=== PATIENT | male | born 1970 | race Caucasian/White ===

== ENCOUNTER 2021-05-24 11:27 | Inpatient (IN) ==
[2021-05-24 12:11] LABS: Hematocrit 45.5 % (37.5-50.1); Hemoglobin 15.6 g/dL (12.9-16.9); Mean Corpuscular HGB Conc 34.3 g/dL (31.6-35.5); Mean Corpuscular Hemoglobin 29.1 pg (28.0-33.3); Mean Corpuscular Volume 84.9 fL (83.0-100.0); Mean Platelet Volume 10.7 fL (9.4-12.4); Platelet Count 234 K/mcL (140-400); Red Blood Count 5.36 M/mcL (4.19-5.50); Red Cell Distribution Width 13.1 % (11.5-14.5)
[2021-05-24 12:12] LABS: White Blood Count 12.9 K/mcL (4.3-11.1)
[2021-05-24 12:14] LABS: VBG HCO3 22 mEq/L (21-27); VBG PCO2 29 mmHg (41-51); VBG PH 7.49 pH Units (7.32-7.42); VBG PO2 78 mmHg (25-50)
[2021-05-24 12:48] LABS: BUN/Creatinine Ratio 22 (6-26); Blood Urea Nitrogen 18 mg/dL (6-20); Calcium 8.8 mg/dL (8.6-10.3); Carbon Dioxide 22 mEq/L (23-29); Chloride 101 mEq/L (98-107); Glucose 125 mg/dL (70-105); Osmolality,Calculated 281 (280-300); Potassium 3.9 mEq/L (3.5-5.1); Sodium 134 mEq/L (136-145); Troponin I < 0.03 ng/mL (< 0.04); eGFR For African Americans > 60 (> 60); eGFR For Non-African Americans > 60 (> 60)
[2021-05-24 12:56] LABS: Lymphocytes # 0.4 K/mcL (0.6-4.6); Monocytes # 0.4 K/mcL (0.0-1.3); Neutrophils # 12.1 K/mcL (1.6-8.9); Platelet Estimate Normal (Normal)
[2021-05-24] MEDS ORDERED: Isovue-370 500 ML BOTTLE IVP ONE (13:09)
[2021-05-24 13:26] LABS: C-Reactive Protein 11 mg/L (Less than 10); Ferritin > 1500 ng/mL (20-250)
[2021-05-24] MEDS ORDERED: Ondansetron 4 MG/2 ML VIAL IVP PRN (15:24)
[2021-05-24] MEDS ORDERED: Naloxone 0.4 MG/ML INJ IVP PRN (15:24)
[2021-05-24] MEDS ORDERED: Haloperidol Lactate 5 MG/ML VIAL IVP PRN (15:31)
[2021-05-24] MEDS: MethylPREDNISolone 40 MG/ML VIAL IVP SCH (18:10)
[2021-05-24] MEDS: Acetaminophen 325 MG TABLET PO PRN (21:39)
[2021-05-24] MEDS: ALPRAZolam 0.5 MG TABLET PO PRN (21:40)
[2021-05-25 01:38] LABS: Basophils # 0.1 K/mcL (0.0-0.2); Basophils % 0.4 %; Eosinophils % 0.2 %; Hematocrit 43.7 % (37.5-50.1); Hemoglobin 15.1 g/dL (12.9-16.9); Immature Granulocytes % 0.9 % (0-4); Lymphocytes # 0.5 K/mcL (0.6-4.6); Lymphocytes % 4.2 %; Mean Corpuscular HGB Conc 34.6 g/dL (31.6-35.5); Mean Corpuscular Hemoglobin 29.4 pg (28.0-33.3); Mean Platelet Volume 10.8 fL (9.4-12.4); Monocytes # 0.4 K/mcL (0.0-1.3); Monocytes % 3.3 %; Neutrophils # 10.9 K/mcL (1.6-8.9); Platelet Count 223 K/mcL (140-400); Red Blood Count 5.14 M/mcL (4.19-5.50); Red Cell Distribution Width 13.1 % (11.5-14.5)
[2021-05-25 02:00] LABS: BUN/Creatinine Ratio 20 (6-26); Blood Urea Nitrogen 16 mg/dL (6-20); C-Reactive Protein 30 mg/L (Less than 10); Calcium 8.3 mg/dL (8.6-10.3); Carbon Dioxide 21 mEq/L (23-29); Chloride 100 mEq/L (98-107); Glucose 162 mg/dL (70-105); Lactate Dehydrogenase 882 Units/L (140-271); Magnesium 2.4 mg/dL (1.6-2.6); Osmolality,Calculated 277 (280-300); Phosphorous 3.9 mg/dL (2.7-4.5); Potassium 4.4 mEq/L (3.5-5.1); Sodium 131 mEq/L (136-145); eGFR For African Americans > 60 (> 60); eGFR For Non-African Americans > 60 (> 60)
[2021-05-25 02:04] LABS: Platelet Estimate Normal (Normal)
[2021-05-25 02:21] LABS: Ferritin > 1500 ng/mL (20-250)
[2021-05-25] MEDS: ALPRAZolam 0.5 MG TABLET PO PRN (05:16)
[2021-05-25] MEDS: *HR* Enoxaparin 40 MG/0.4 ML SYRINGE SQ SCH (05:17)
[2021-05-25] MEDS: MethylPREDNISolone 40 MG/ML VIAL IVP SCH (09:03)
[2021-05-25] MEDS: Furosemide 20 MG TABLET PO SCH (09:03)
[2021-05-25 10:51] LABS: Acinetobacter baumannii by PCR Not Detected (Not Detect); Enterobacter cloacae Cmplx PCR Not Detected (Not Detect); Enterobacteriaceae by PCR Not Detected (Not Detect); Enterococcus by PCR Not Detected (Not Detect); Escherichia coli by PCR Not Detected (Not Detect); Klebsiella oxytoca by PCR Not Detected (Not Detect); Klebsiella pneumoniae by PCR Not Detected (Not Detect); Proteus by PCR Not Detected (Not Detect); Staphylococcus aureus by PCR Not Detected (Not Detect); Staphylococcus by PCR DETECTED (Not Detect); Streptococcus agalactiae(B)PCR Not Detected (Not Detect); Streptococcus by PCR Not Detected (Not Detect); Streptococcus pneumoniae PCR Not Detected (Not Detect); Streptococcus pyogenes (A) PCR Not Detected (Not Detect); blaKPC Carbapenem-Resist Gene Not Detected (Not Detect); mecA Methicillin-Resist Gene Not Detected (Not Detect); vanA/B Vancomycin-Resist Genes Not Detected (Not Detect)
[2021-05-25 10:52] LABS: Candida albicans by PCR Not Detected (Not Detect); Candida glabrata by PCR Not Detected (Not Detect); Candida krusei by PCR Not Detected (Not Detect); Candida parapsilosis by PCR Not Detected (Not Detect); Candida tropicalis by PCR Not Detected (Not Detect); Pseudomonas aeruginosa by PCR Not Detected (Not Detect); Serratia marcescens by PCR Not Detected (Not Detect)
[2021-05-25] MEDS: ALPRAZolam 0.5 MG TABLET PO SCH ×2 (13:11→20:05)
[2021-05-25] MEDS: risperiDONE 0.25 MG TABLET PO PRN (20:05)
[2021-05-25] MEDS: Benzonatate 100 MG CAPSULE PO PRN (20:05)
[2021-05-26] MEDS: Acetaminophen 325 MG TABLET PO PRN ×3 (00:27→20:35)
[2021-05-26 01:43] LABS: Basophils # 0.1 K/mcL (0.0-0.2); Basophils % 0.8 %; Eosinophils % 0.1 %; Hematocrit 47.5 % (37.5-50.1); Hemoglobin 15.5 g/dL (12.9-16.9); Immature Granulocytes % 2.9 % (0-4); Lymphocytes # 0.8 K/mcL (0.6-4.6); Lymphocytes % 6.8 %; Mean Corpuscular HGB Conc 32.6 g/dL (31.6-35.5); Mean Corpuscular Hemoglobin 28.9 pg (28.0-33.3); Mean Corpuscular Volume 88.6 fL (83.0-100.0); Mean Platelet Volume 11.1 fL (9.4-12.4); Monocytes # 0.4 K/mcL (0.0-1.3); Neutrophils # 10.2 K/mcL (1.6-8.9); Platelet Count 207 K/mcL (140-400); Red Blood Count 5.36 M/mcL (4.19-5.50); Red Cell Distribution Width 13.2 % (11.5-14.5); Segmented Neutrophils % 86.4 %; White Blood Count 11.8 K/mcL (4.3-11.1)
[2021-05-26 02:04] LABS: BUN/Creatinine Ratio 16 (6-26); Blood Urea Nitrogen 14 mg/dL (6-20); Calcium 8.4 mg/dL (8.6-10.3); Carbon Dioxide 23 mEq/L (23-29); Chloride 101 mEq/L (98-107); Glucose 102 mg/dL (70-105); Osmolality,Calculated 279 (280-300); Potassium 4.4 mEq/L (3.5-5.1); Sodium 134 mEq/L (136-145); eGFR For African Americans > 60 (> 60); eGFR For Non-African Americans > 60 (> 60)
[2021-05-26] MEDS: *HR* Enoxaparin 40 MG/0.4 ML SYRINGE SQ SCH (05:19)
[2021-05-26] MEDS: Furosemide 20 MG TABLET PO SCH (09:28)
[2021-05-26] MEDS: ALPRAZolam 0.5 MG TABLET PO SCH ×3 (09:28→20:18)
[2021-05-26] MEDS: Benzonatate 100 MG CAPSULE PO PRN ×3 (09:28→20:18)
[2021-05-26] MEDS: MethylPREDNISolone 40 MG/ML VIAL IVP SCH (09:28)
[2021-05-27 02:01] LABS: Hematocrit 44.1 % (37.5-50.1); Hemoglobin 14.8 g/dL (12.9-16.9); Mean Corpuscular HGB Conc 33.6 g/dL (31.6-35.5); Mean Corpuscular Hemoglobin 28.7 pg (28.0-33.3); Mean Corpuscular Volume 85.6 fL (83.0-100.0); Mean Platelet Volume 10.7 fL (9.4-12.4); Platelet Count 277 K/mcL (140-400); Red Blood Count 5.15 M/mcL (4.19-5.50); Red Cell Distribution Width 12.9 % (11.5-14.5); White Blood Count 9.9 K/mcL (4.3-11.1)
[2021-05-27 02:18] LABS: C-Reactive Protein 173 mg/L (Less than 10); Calcium 8.4 mg/dL (8.6-10.3); Carbon Dioxide 24 mEq/L (23-29); Chloride 101 mEq/L (98-107); Glucose 123 mg/dL (70-105); Lactate Dehydrogenase 577 Units/L (140-271); Potassium 4.2 mEq/L (3.5-5.1); Sodium 134 mEq/L (136-145); eGFR For African Americans > 60 (> 60); eGFR For Non-African Americans > 60 (> 60)
[2021-05-27 02:38] LABS: BUN/Creatinine Ratio 22 (6-26); Blood Urea Nitrogen 15 mg/dL (6-20); Ferritin > 1500 ng/mL (20-250); Osmolality,Calculated 280 (280-300)
[2021-05-27] MEDS: *HR* Enoxaparin 40 MG/0.4 ML SYRINGE SQ SCH (05:35)
[2021-05-27] MEDS ORDERED: Isovue-370 500 ML BOTTLE IVP ONE (09:42)
[2021-05-27] MEDS: ALPRAZolam 0.5 MG TABLET PO SCH ×3 (09:53→19:50)
[2021-05-27] MEDS: Acetaminophen 325 MG TABLET PO PRN ×2 (09:53→21:10)
[2021-05-27] MEDS: Benzonatate 100 MG CAPSULE PO PRN ×2 (09:53→17:37)
[2021-05-27] MEDS: Furosemide 20 MG TABLET PO SCH (09:53)
[2021-05-27] MEDS: MethylPREDNISolone 40 MG/ML VIAL IVP SCH (09:53)
[2021-05-27] MEDS: Piperacillin/Tazobactam 3.375 GM in 0.9 % Sodium Chloride Mini Bag 100 ML IVPB SCH ×2 (09:55→17:30)
[2021-05-27] MEDS: risperiDONE 0.25 MG TABLET PO PRN (12:49)
[2021-05-28] MEDS: Benzonatate 100 MG CAPSULE PO PRN ×2 (01:34→20:49)
[2021-05-28] MEDS: *HR* Enoxaparin 40 MG/0.4 ML SYRINGE SQ SCH (04:35)
[2021-05-28] MEDS: Piperacillin/Tazobactam 3.375 GM in 0.9 % Sodium Chloride Mini Bag 100 ML IVPB SCH ×3 (04:35→20:36)
[2021-05-28] MEDS: Furosemide 20 MG TABLET PO SCH (08:05)
[2021-05-28] MEDS: ALPRAZolam 0.5 MG TABLET PO SCH ×3 (08:05→20:39)
[2021-05-28] MEDS: MethylPREDNISolone 40 MG/ML VIAL IVP SCH (08:06)
[2021-05-28] MEDS ORDERED: Azithromycin 250 MG TABLET PO SCH (10:15)
[2021-05-28] MEDS: Doxycycline 100 MG CAPSULE PO SCH ×2 (11:14→20:39)
[2021-05-28 11:22] LABS: Hematocrit 44.8 % (37.5-50.1); Hemoglobin 15.3 g/dL (12.9-16.9); Mean Corpuscular HGB Conc 34.2 g/dL (31.6-35.5); Mean Corpuscular Hemoglobin 29.5 pg (28.0-33.3); Mean Corpuscular Volume 86.3 fL (83.0-100.0); Mean Platelet Volume 10.7 fL (9.4-12.4); Platelet Count 358 K/mcL (140-400); Red Blood Count 5.19 M/mcL (4.19-5.50)
[2021-05-28 11:46] LABS: BUN/Creatinine Ratio 21 (6-26); Blood Urea Nitrogen 18 mg/dL (6-20); C-Reactive Protein 72 mg/L (Less than 10); Calcium 8.8 mg/dL (8.6-10.3); Carbon Dioxide 26 mEq/L (23-29); Chloride 103 mEq/L (98-107); Glucose 120 mg/dL (70-105); Lactate Dehydrogenase 494 Units/L (140-271); Osmolality,Calculated 285 (280-300); Potassium 4.3 mEq/L (3.5-5.1); Sodium 136 mEq/L (136-145); eGFR For African Americans > 60 (> 60); eGFR For Non-African Americans > 60 (> 60)
[2021-05-28 12:25] LABS: Ferritin > 1500 ng/mL (20-250)
[2021-05-28] MEDS: Acetaminophen 325 MG TABLET PO PRN (20:49)
[2021-05-29 01:52] LABS: Hematocrit 41.4 % (37.5-50.1); Hemoglobin 13.9 g/dL (12.9-16.9); Mean Corpuscular HGB Conc 33.6 g/dL (31.6-35.5); Mean Corpuscular Hemoglobin 29.3 pg (28.0-33.3); Mean Corpuscular Volume 87.3 fL (83.0-100.0); Mean Platelet Volume 10.2 fL (9.4-12.4); Platelet Count 357 K/mcL (140-400); Red Blood Count 4.74 M/mcL (4.19-5.50); White Blood Count 8.9 K/mcL (4.3-11.1)
[2021-05-29 02:21] LABS: BUN/Creatinine Ratio 23 (6-26); Blood Urea Nitrogen 18 mg/dL (6-20); C-Reactive Protein 53 mg/L (Less than 10); Calcium 8.4 mg/dL (8.6-10.3); Carbon Dioxide 25 mEq/L (23-29); Chloride 104 mEq/L (98-107); Glucose 90 mg/dL (70-105); Lactate Dehydrogenase 365 Units/L (140-271); Osmolality,Calculated 287 (280-300); Sodium 138 mEq/L (136-145); eGFR For African Americans > 60 (> 60); eGFR For Non-African Americans > 60 (> 60)
[2021-05-29 02:37] LABS: Ferritin > 1500 ng/mL (20-250)
[2021-05-29] MEDS: Piperacillin/Tazobactam 3.375 GM in 0.9 % Sodium Chloride Mini Bag 100 ML IVPB SCH ×3 (04:27→20:29)
[2021-05-29] MEDS: *HR* Enoxaparin 40 MG/0.4 ML SYRINGE SQ SCH (04:28)
[2021-05-29] MEDS: MethylPREDNISolone 40 MG/ML VIAL IVP SCH (07:53)
[2021-05-29] MEDS: Furosemide 20 MG TABLET PO SCH (07:53)
[2021-05-29] MEDS: ALPRAZolam 0.5 MG TABLET PO SCH ×3 (07:53→20:29)
[2021-05-29] MEDS: Doxycycline 100 MG CAPSULE PO SCH ×2 (07:53→20:29)
[2021-05-29] MEDS: Benzonatate 100 MG CAPSULE PO PRN ×2 (08:03→18:21)
[2021-05-29] MEDS ORDERED: Benzonatate 100 MG CAPSULE PO ONE (20:53)
[2021-05-30 05:08] LABS: Hematocrit 42.6 % (37.5-50.1); Hemoglobin 14.1 g/dL (12.9-16.9); Mean Corpuscular HGB Conc 33.1 g/dL (31.6-35.5); Mean Corpuscular Hemoglobin 28.7 pg (28.0-33.3); Mean Corpuscular Volume 86.6 fL (83.0-100.0); Platelet Count 351 K/mcL (140-400); Red Blood Count 4.92 M/mcL (4.19-5.50); Red Cell Distribution Width 12.9 % (11.5-14.5); White Blood Count 10.4 K/mcL (4.3-11.1)
[2021-05-30 05:34] LABS: BUN/Creatinine Ratio 23 (6-26); Blood Urea Nitrogen 18 mg/dL (6-20); Carbon Dioxide 26 mEq/L (23-29); Chloride 102 mEq/L (98-107); Glucose 83 mg/dL (70-105); Osmolality,Calculated 285 (280-300); Potassium 3.9 mEq/L (3.5-5.1); Sodium 137 mEq/L (136-145); eGFR For African Americans > 60 (> 60); eGFR For Non-African Americans > 60 (> 60)
[2021-05-30] MEDS: *HR* Enoxaparin 40 MG/0.4 ML SYRINGE SQ SCH (05:53)
[2021-05-30] MEDS: Piperacillin/Tazobactam 3.375 GM in 0.9 % Sodium Chloride Mini Bag 100 ML IVPB SCH ×3 (05:54→20:45)
[2021-05-30] MEDS: Benzonatate 100 MG CAPSULE PO PRN ×2 (07:50→18:10)
[2021-05-30] MEDS: ALPRAZolam 0.5 MG TABLET PO SCH ×3 (07:50→20:46)
[2021-05-30] MEDS: Furosemide 20 MG TABLET PO SCH (07:50)
[2021-05-30] MEDS: Doxycycline 100 MG CAPSULE PO SCH ×2 (07:50→20:46)
[2021-05-30] MEDS: MethylPREDNISolone 40 MG/ML VIAL IVP SCH (07:51)
[2021-05-31 01:43] LABS: Hematocrit 40.8 % (37.5-50.1); Hemoglobin 13.9 g/dL (12.9-16.9); Mean Corpuscular HGB Conc 34.1 g/dL (31.6-35.5); Mean Corpuscular Hemoglobin 29.6 pg (28.0-33.3); Mean Platelet Volume 9.9 fL (9.4-12.4); Platelet Count 321 K/mcL (140-400); Red Blood Count 4.69 M/mcL (4.19-5.50); Red Cell Distribution Width 12.7 % (11.5-14.5); White Blood Count 10.8 K/mcL (4.3-11.1)
[2021-05-31 02:06] LABS: BUN/Creatinine Ratio 20 (6-26); Blood Urea Nitrogen 17 mg/dL (6-20); C-Reactive Protein 38 mg/L (Less than 10); Calcium 8.7 mg/dL (8.6-10.3); Carbon Dioxide 24 mEq/L (23-29); Chloride 102 mEq/L (98-107); Glucose 89 mg/dL (70-105); Lactate Dehydrogenase 384 Units/L (140-271); Osmolality,Calculated 283 (280-300); Potassium 3.7 mEq/L (3.5-5.1); Sodium 136 mEq/L (136-145); eGFR For African Americans > 60 (> 60); eGFR For Non-African Americans > 60 (> 60)
[2021-05-31 02:24] LABS: Ferritin > 1500 ng/mL (20-250)
[2021-05-31] MEDS: Benzonatate 100 MG CAPSULE PO PRN ×3 (02:54→21:00)
[2021-05-31] MEDS: Piperacillin/Tazobactam 3.375 GM in 0.9 % Sodium Chloride Mini Bag 100 ML IVPB SCH ×3 (05:36→20:57)
[2021-05-31] MEDS: *HR* Enoxaparin 40 MG/0.4 ML SYRINGE SQ SCH (05:36)
[2021-05-31] MEDS: Doxycycline 100 MG CAPSULE PO SCH ×2 (10:15→20:57)
[2021-05-31] MEDS: MethylPREDNISolone 40 MG/ML VIAL IVP SCH (10:15)
[2021-05-31] MEDS: Furosemide 20 MG TABLET PO SCH (10:15)
[2021-05-31] MEDS: ALPRAZolam 0.5 MG TABLET PO SCH (10:15)
[2021-05-31] MEDS ORDERED: Saline Nasal Spray 44 ML BOTTLE NS PRN (10:18)
[2021-05-31] MEDS: ALPRAZolam 0.5 MG TABLET PO PRN (20:57)
[2021-06-01] MEDS: Piperacillin/Tazobactam 3.375 GM in 0.9 % Sodium Chloride Mini Bag 100 ML IVPB SCH ×3 (03:57→21:01)
[2021-06-01] MEDS: *HR* Enoxaparin 40 MG/0.4 ML SYRINGE SQ SCH (03:57)
[2021-06-01 05:49] LABS: Hematocrit 45.5 % (37.5-50.1); Mean Corpuscular HGB Conc 34.1 g/dL (31.6-35.5); Mean Corpuscular Hemoglobin 29.6 pg (28.0-33.3); Mean Corpuscular Volume 86.8 fL (83.0-100.0); Mean Platelet Volume 10.4 fL (9.4-12.4); Platelet Count 361 K/mcL (140-400); Red Blood Count 5.24 M/mcL (4.19-5.50); Red Cell Distribution Width 12.8 % (11.5-14.5); White Blood Count 14.2 K/mcL (4.3-11.1)
[2021-06-01 05:54] LABS: Hemoglobin 15.5 g/dL (12.9-16.9)
[2021-06-01 06:12] LABS: BUN/Creatinine Ratio 17 (6-26); Blood Urea Nitrogen 16 mg/dL (6-20); Calcium 9.3 mg/dL (8.6-10.3); Carbon Dioxide 21 mEq/L (23-29); Chloride 102 mEq/L (98-107); Glucose 90 mg/dL (70-105); Osmolality,Calculated 285 (280-300); Potassium 3.7 mEq/L (3.5-5.1); Sodium 137 mEq/L (136-145); eGFR For African Americans > 60 (> 60); eGFR For Non-African Americans > 60 (> 60)
[2021-06-01] MEDS: Doxycycline 100 MG CAPSULE PO SCH ×2 (08:03→21:01)
[2021-06-01] MEDS: predniSONE 20 MG TABLET PO SCH (08:03)
[2021-06-01] MEDS: Benzonatate 100 MG CAPSULE PO PRN ×2 (08:03→21:14)
[2021-06-01] MEDS: Furosemide 20 MG TABLET PO SCH (08:03)
[2021-06-01] MEDS: ALPRAZolam 0.5 MG TABLET PO PRN (10:11)
[2021-06-01] MEDS ORDERED: Isovue-370 500 ML BOTTLE IVP ONE (10:39)
[2021-06-01] MEDS ORDERED: 0.9 % Sodium Chloride 500 ML IVC ONE (13:39)
[2021-06-01] MEDS ORDERED: *HR* Heparin 5,000 UNIT/ML VIAL IVP ONE (15:54)
[2021-06-01] MEDS ORDERED: *HR* Heparin 5,000 UNIT/ML VIAL IVP PRN ×2 (15:54)
[2021-06-01] MEDS ORDERED: Heparin 25,000UNIT/250ML 1/2NS 25,000 UNIT/250 ML IV.SOLN IVC SCH (16:00)
[2021-06-01] MEDS ORDERED: 0.9 % Sodium Chloride 1,000 ML IVC SCH (16:15)
[2021-06-01 17:08] LABS: Heparin anti-factor XA UFH 0.07 IU/mL (0.30-0.70)
[2021-06-01 17:09] LABS: INR 1.2; Prothrombin Time 12.9 Seconds (9.4-12.1)
[2021-06-02] MEDS: Piperacillin/Tazobactam 3.375 GM in 0.9 % Sodium Chloride Mini Bag 100 ML IVPB SCH ×2 (05:37→11:53)
[2021-06-02] MEDS: predniSONE 20 MG TABLET PO SCH (08:46)
[2021-06-02] MEDS: Doxycycline 100 MG CAPSULE PO SCH (08:46)
[2021-06-02 10:47] VITALS: TEMP 97.8; O2SAT 95
[2021-06-02 12:56] VITALS: BP 124/87; PULSE 100
== END 2021-06-02 13:04 | disposition short-term general hospital (02) | DRG 720 ==
LOC: 2ANU 11:27 → EMEROOARM 11:27 → SUATTDRO 17:43 → 2ANU 18:15 → 2NNU 06-01 18:04
PROVIDERS: ADMIT Family Medicine; ATTEND Internal Medicine